=== PATIENT | male | born 1960 | race Caucasian/White ===

== ENCOUNTER 2016-12-03 13:17 | Emergency (ER) | payer OTHER ==
[~2016-12-03] VITALS: Ht 177.8 cm; Wt 90.0 kg
[2016-12-03] MEDS ORDERED: NITROGLYCERIN SINGLE TAB 0.4 MG SL PRN (14:00)
[2016-12-03] MEDS ORDERED: SODIUM CHLORIDE FLUSH 10ML SYR IVF ONE (14:00)
[2016-12-03] MEDS ORDERED: ONDANSETRON 2MG/ML, 2ML IVPush ONE (14:00)
[2016-12-03] MEDS ORDERED: MORPHINE SULFATE 4 MG/ML, 1ML IVPush PRN (14:00)
[2016-12-03 14:33] LABS: HEMATOCRIT 43.7 % (39.2-51.8); WHITE BLOOD COUNT 6.9 x10^3/uL (3.4-10)
[2016-12-03 14:41] LABS: BLOOD UREA NITROGEN 20 mg/dL (7-18)
[2016-12-03 14:46] LABS: ASPARTATE AMINO TRANSFERASE 48 U/L (15-37)
[2016-12-03 14:47] LABS: IS PT STATUS REG ER OR PRE ER? YES
[2016-12-03 15:10] VITALS: BP 161/88
== END 2016-12-03 15:37 | disposition home or self-care (01) ==
LOC: ED 15:31
DX: R07.89 Other chest pain (principal); F10.20 Alcohol dependence, uncomplicated; I10 Essential (primary) hypertension; J44.9 Chronic obstructive pulmonary disease, unspecified; Z87.891 Personal history of nicotine dependence
CPT/HCPCS: 36415; 71010; 80053; 83880; 84484; 85025; 85379; 85610; 85730; 93005; 99285